=== PATIENT | female | born 1960 | race Caucasian/White ===

== ENCOUNTER 2024-05-30 20:59 | Emergency (ER) | payer OTHER, SELFPAY ==
[2024-05-30 21:09] VITALS: BP 115/61
[2024-05-30 21:14] VITALS: BP 115/61
[2024-05-30 21:20] VITALS: BMI 30.5
[2024-05-30 21:46] LABS: % Basophils 0.7 % (0-2); % Eosinophils 1.9 % (0-6); % Immature Granulocytes 0.4 % (0-0.5); % Lymphocytes 25.8 % (20.5-51.1); % Neutrophils 64.2 % (42.2-75.2); Absolute Basophils 0.1 10^3/uL (0-0.2); Absolute Eosinophils 0.2 10^3/uL (0-0.7); Absolute Lymphocytes 2.2 10^3/uL (1.2-3.4); Absolute Monocytes 0.6 10^3/uL (0.1-0.6); Absolute Neutrophils 5.5 10^3/uL (1.4-6.5); Hematocrit 38.6 % (37.0-47.0); Hemoglobin 13.1 g/dL (12.0-16.0); Mean Corp Hgb Conc. 33.9 g/dL (33.0-37.0); Mean Corpuscular Hgb 30.5 pg (27.0-31.0); Nucleated Red Blood Cells % 0 %; Platelet Count 277 10^3/uL (130-400); Red Blood Cell Count 4.29 10^6/uL (4.20-5.40); Red Cell Dist. Width 12.3 % (11.5-14.5); White Blood Cell Count 8.5 10^3/uL (4.8-10.8)
[2024-05-30 22:00] VITALS: BP 100/58
--- NOTE | 2024-05-30 22:01 | ED.GENMED ---
History of Present Illness
<CRYS Santa - Last Filed: 05/30/24 22:40>
General
Chief Complaint: Fainting/Passed Out
Source: patient and family
Exam Limitations: none
Time Seen by Provider: 05/30/24 22:03
Nursing documentation reviewed up to this point in time: agreed with
History of Present Illness
History of Present Illness:
Pt is a 63 yo F w/ PMH of HTN, HLD, RA and fibromyalgia who presents to the ED with her daughter via EMS for an episode of syncope and hypotension 2 hours ago. Pt's daughter states they were out for drinks and, on their walk home, pt took a sample
of a 'vape containing mushrooms' that was advertised to help with chronic pain. When they arrived to their next stop, pt began feeling lightheaded and sat down. Pt's daughter says that pt became incoherent and pale for a few minutes and then passed
out. Pt was sitting down in a chair during syncopal episode and pt's daughter denies trauma to pt's head, falling out of chair, or seizure-like activity. Pt's daughter states this made her worried so she called EMS. Pt states the reason they decided
to come to ED was because the pt's BP was 70/40. On [address] way to the hospital, pt admits to 1 episode of non-bloody vomiting. Pt denies headache, nausea, fever, chills, chest pain, palpitations, dyspnea, abdominal pain, incontinence, and
numbness/tingling in extremities x 4.
Past History
<CRYS Santa - Last Filed: 05/30/24 22:40>
Past History
ED Past Medical History: Fibromyalgia, HTN and Hypercholesterolemia
Social History
Tobacco: Smoker
Alcohol: Occasional
Review of Systems
<CRYS Santa - Last Filed: 05/30/24 22:40>
Review of Systems
Allergies reviewed?: Yes
Constitutional: Denies fever, fatigue or chills
Respiratory: Denies cough or trouble breathing
Cardiac: Reports syncope; Denies chest pain or palpitations
ABD/GI: Reports nausea (has subsided after Zofran administration) and vomiting (1 episode while in ambulance); Denies abdominal pain, diarrhea or constipated
: Denies incontinence
Neurological: Denies headache, weakness or numbness
Phy Exam
<CRYS Santa - Last Filed: 05/30/24 22:40>
General Physical Exam
General Presentation: well appearing and no apparent distress
General age: appears stated age
General Skin: warm and dry
General Habitus: normal
General Mental: appears intoxicated (pt with xerostomia, slight slurring of words)
General Hydration: dry mucous membranes (mild)
Cardiovascular Exam
Cardiovascular Exam: regular rate/rhythm and no murmur
Pulmonary Exam
Pulmonary Exam: lungs clear and no respiratory distress
Neurological Exam
Neurological Exam: alert, oriented x3, no motor deficits and no sensory deficits
Course
<CRYS Santa - Last Filed: 05/30/24 22:40>
Orders/Labs/Results
Orders:
Orders
05/30/24 21:18
Electrocardiogram (*1) Urgent
Reason for Study: Chest Pain
05/30/24 21:19
EKG- Treatment ONCE
05/30/24 21:34
Alcohol Urgent
Complete Blood Count/With Diff Urgent
Comprehensive Metabolic Panel Urgent
05/30/24 22:18
Add On- LAB Urgent
Tests Added?: alcohol
05/30/24 22:21
Urine Drug Abuse Screen Urgent
05/30/24 22:22
Orthostatic VS- Treatment ONCE
0.9% Sodium Chloride 1000 ml [Nss] 1,000 ml IV BOLUS
05/30/24 21:34
05/30/24 21:34
Vital Signs
Initial and Last Documented VS:
Initial Vital Signs
BP
115/61
05/30/24 21:09
Last Documented Vital Signs
Temp Pulse Resp BP Pulse Ox
97.6 F 72 19 113/68 96
05/30/24 21:14 05/30/24 23:15 05/30/24 23:15 05/30/24 23:00 05/30/24 23:15
<Arcelia Goodwin DO - Last Filed: 05/30/24 23:45>
Orders/Labs/Results
Orders:
Orders
05/30/24 21:18
Electrocardiogram (*1) Urgent
Reason for Study: Chest Pain
05/30/24 21:19
EKG- Treatment ONCE
05/30/24 21:34
Alcohol Urgent
Complete Blood Count/With Diff Urgent
Comprehensive Metabolic Panel Urgent
05/30/24 22:18
Add On- LAB Urgent
Tests Added?: alcohol
05/30/24 22:21
Urine Drug Abuse Screen Urgent
05/30/24 22:22
Orthostatic VS- Treatment ONCE
0.9% Sodium Chloride 1000 ml [Nss] 1,000 ml IV BOLUS
05/30/24 21:34
05/30/24 21:34
Vital Signs
Initial and Last Documented VS:
Initial Vital Signs
BP
115/61
05/30/24 21:09
Last Documented Vital Signs
Temp Pulse Resp BP Pulse Ox
97.6 F 72 19 113/68 96
05/30/24 21:14 05/30/24 23:15 05/30/24 23:15 05/30/24 23:00 05/30/24 23:15
<CRYS Santa - Last Filed: 05/30/24 22:40>
MDM/Problems Addressed
Differential Diagnosis Includes:
intoxication, hypotension leading to syncopal episode, acute hypoglycemia
<CRYS Santa - Last Filed: 05/30/24 22:40>
*EKG
Interpreted by ED Provider?: Yes
EKG Intrepretation Date: 05/30/24
EKG Intrepretation Time: 22:15
Interpretation: normal
Comparison EKG: no comparison EKG present
Heart Rate: 68
Rate: bradycardiac
Rhythm: sinus
[place]: normal axis
Interval: normal interval
QRS Pattern: normal QRS
Ischemia: no ischemia
*Critical Care Note
Total Time (30-74mins, 75-104mins- exclusive of procedures): Not Applicable
<Arcelia Goodwin DO - Last Filed: 05/30/24 23:45>
*Pulse Oximetry
Patient hypoxic: no
*EKG
Rate: normal
*Can Tester Interpretation
Rate: normal
Interpretation: normal
Rhythm: sinus
ED Attending Note
<CRYS Santa - Last Filed: 05/30/24 22:40>
-
Portions of this chart may have been created with voice recognition software.� Occasional wrong word or��sound alike� substitutions may have occurred due to the inherent limitations of voice recognition software.
<Arcelia Goodwin DO - Last Filed: 05/30/24 23:45>
ED Attending Note
Patient seen and examined by attending physician: Yes
I performed the substantive portion of visit, reviewed & personally made and approve the management plan that is documented in note by myself or ELI.: Yes
ED Attending Note:
This is a 63-year-old woman with history of hypertension, fibromyalgia, hyperlipidemia who was out to dinner tonight with her daughter, admits to 2 drinks while at dinner. While walking back to their hotel room at [facility], they walked past a
smoke shop that was offering samples and patient admits to inhaling a sample from a vape cartridge containing some sort of mushroom substance. She felt fine initially, able to return to her hotel room, smoking a cigarette outside of her hotel room
when she began to feel lightheaded, dizzy, nauseous. Was unable to finish her cigarette, walked back into the hotel room and sat down her symptoms persisted, worsened and she proceeded to pass out. She did not fall out of her chair, no injury.
Daughter witnessed event and noted that her mother became quite pale and mildly diaphoretic. No seizure activity. No incontinence.
Upon EMS arrival patient noted to be hypotensive with initial blood pressure 70/40, heart rate of 88. Accu-Chek of 121.
Was given IV Zofran and IV normal saline bolus of 250 cc prehospital with improvement in blood pressure to 104/61.
Upon arrival to the ED patient now feeling markedly improved, resolution of symptoms. No further nausea.
She denies palpitations, no chest pain, no cough no shortness of breath, no abdominal pain nor back pain.
Her daily medications include Effexor, hydrochlorothiazide, atorvastatin. Admits to 2 drinks with dinner tonight but reports rare alcohol consumption. Denies drug use.
She does smoke cigarettes.
GENERAL: Alert , in no apparent distress. 63-year-old woman appears her stated age, bright and alert, pleasant, easily communicative and in no acute distress. Daughter is accompanying.
EYE: pupils equal and reactive. anicteric
NECK: Supple, nontender, no meningismus, no significant adenopathy.
ENT: oral mucosa is moist. No rhinorrhea.
CARDIAC: Regular rate and rhythm. no murmur. No chest wall tenderness.
LUNGS: Clear breath sounds bilaterally, no acute respiratory distress, no wheezes/rales/rhonchi
ABDOMEN: Soft, nondistended, without focal tenderness, normoactive BS.
NEUROLOGICAL: Alert and oriented x3, no focal neuro deficits.
SKIN: Warm and dry, normal color, skin intact. No rash.
MUSCULOSKELETAL: No C/C/E. peripheral pulses are full and equal b/l. No palpable tenderness.
PSYCH: Normal and appropriate interaction.
History and exam most consistent with vasovagal syncope, concern for adverse reaction to inhalation of reported mushroom type substance.
Symptoms may have been exacerbated by recent alcohol consumption however no evidence of alcohol intoxication on exam.
Patient denies palpitations nor shortness of breath, nothing to suggest tachyarrhythmia but this is always a consideration.
Labs thus far are unremarkable. Will check alcohol level for completeness sake. Could consider UDS.
Blood pressure currently 115/61.
Monitor shows normal sinus rhythm in the 70s.
EKG shows normal sinus rhythm, normal axis, normal intervals, no acute ST-T wave abnormalities. No old EKGs to compare.
Will finish 1000 cc IV fluid bolus and plan for orthostatic vital signs.
Will continue electronic device monitor assess for potential arrhythmia.
The patient continues to feel well, no arrhythmia and orthostatics are negative we will plan to discharge to home.
Recommend she avoid vape shop products in the future.
Discharge Plan
Departure
Patient Disposition: Home (Routine Discharge)
Date of Disposition: 05/30/24
Time of Disposition: 23:45
Patient with high blood pressure during this ER visit?: No
Condition: Good
Discharge Problem:
Vasovagal syncope, adverse reaction to inhalant
Instructions: Syncope (Fainting) (DC)
Referrals:
UNKNOWN - PT DOES,NOT KNOW [Family Provider] - Call in 1-3 days for appt
Interventions
Interventions:
*Risk Screen - Suicide Last Done: 05/30/24 21:19
*General Assessment Last Done: 05/30/24 21:19
*Neglect/Abuse Screening Last Done: 05/30/24 21:19
*ED COVID-19 Vaccine History Last Done: 05/30/24 21:19
ED- Cardiac Assessment Last Done: 05/30/24 21:20
ED- Neurological Assessment Last Done: 05/30/24 21:20
Discharge Date and Time
Print Language: BELARUSIAN
[2024-05-30 22:03] LABS: ALT (SGPT) 24 U/L (0-35); AST (SGOT) 28 U/L (14-36); Albumin 4.3 g/dl (3.5-5.0); Alkaline Phosphatase 77 U/L (38-126); Blood Urea Nitrogen 14 mg/dl (7-17); Calcium 9.5 mg/dl (8.4-10.2); Carbon Dioxide 28 mmol/L (22-30); Chloride 101 mmol/L (98-107); Estimated Creatinine Clearance 58 ml/min; Glucose 93 mg/dl (70-99); Potassium 3.8 mmol/L (3.5-5.1); Sodium 138 mmol/L (135-145); Total Bilirubin 0.3 mg/dl (0.2-1.3); Total Protein 6.8 g/dl (6.3-8.2); eGFR > 60.00
[2024-05-30] MEDS: NSS 1000 IV (22:29)
[2024-05-30 22:32] VITALS: BP 112/67
[2024-05-30 22:33] LABS: Alcohol 36 mg/dl
[2024-05-30 23:00] VITALS: BP 113/68
[2024-05-30 23:42] VITALS: BP 116/83; BP 140/71; BP 146/82; PULSE 82; PULSE 85; PULSE 87
== END 2024-05-30 23:52 | disposition home or self-care (01) ==
LOC: EMR 20:59
PROVIDERS: Emergency Medicine; EMERGENCY PHYSICIAN Emergency Medicine
DX: U07.0 Vaping-related disorder (principal); R55 Syncope and collapse; I10 Essential (primary) hypertension; E78.00 Pure hypercholesterolemia, unspecified; F17.210 Nicotine dependence, cigarettes, uncomplicated; G89.29 Other chronic pain; M79.7 Fibromyalgia
CPT/HCPCS: 96360; 99284; 80053; 82077; 85025; 93005